=== PATIENT | female | born 1960 | race Caucasian/White ===

== ENCOUNTER 2021-01-14 19:07 | Emergency (ER) | payer MEDICARE, OTHER ==
[~2021-01-14 19:07] MED LIST: ACCUPRIL20 MG PO; ATORVASTATIN CA80 MG PO; AUGMENTIN 875-1 EACH PO; ECOTRIN81 MG PO; LITHIUM CARBON300 M3 PO; PLAVIX 75 MG TA75 MG PO; REMERON30 MG PO; SYNTHROID125 MCG PO; TOPROL XL25 MG PO; TRICOR145 MG PO; XANAX1 MG PO; ZITHROMAX250 MG PO; ZOLOFT100 MG PO
[2021-01-14 19:53] LABS: HEMOGLOBIN 13.5 gm/dl (12.3-15.3); RED BLOOD COUNT 4.6 M/UL (4.00-5.10); WHITE BLOOD COUNT 7.4 K/UL (4.5-11.0)
[2021-01-14 19:59] LABS: BUN/CREATININE RATIO 33 (0-10)
[2021-01-14] MEDS ORDERED: ZOFRAN4 MG PO (22:12)
== END 2021-01-14 22:21 | disposition home or self-care (01) ==
LOC: ER1 19:07
PROVIDERS: Preventive Medicine Occupational Medicine
DX: E86.0 Dehydration (principal); I25.10 Atherosclerotic heart disease of native coronary artery without angina pectoris; I25.2 Old myocardial infarction; Z20.822 Contact with and (suspected) exposure to COVID-19; F17.210 Nicotine dependence, cigarettes, uncomplicated
CPT/HCPCS: 0240U; 71045; 80053; 83605; 83690; 85025; 85652; 86140; 93005; 94664; 94760; 96374; 96375; 99285; C9113; J2405

== ENCOUNTER 2021-01-28 18:49 | Inpatient (IN) | payer MEDICARE, OTHER ==
[~2021-01-28] VITALS: Ht 160 cm; Wt 78.9 kg
[~2021-01-28 18:49] MED LIST changes: +ZOFRAN4 MG PO
[2021-01-28 19:44] LABS: HEMOGLOBIN 13.6 gm/dl (12.3-15.3); RED BLOOD COUNT 4.68 M/UL (4.00-5.10); WHITE BLOOD COUNT 7.1 K/UL (4.5-11.0)
[2021-01-29 06:33] LABS: BUN/CREATININE RATIO 36 (0-10)
--- NOTE | 2021-01-29 10:21 | NUR ---
PT PHARMACY CLOSED UNTIL SUNDAY AT 9AM. PT DOES NOT KNOW HOME MEDICINES. NURSING WILL REACH OUT TO PT SISTER TO ATTEMPT TO OBTAIN A LIST. WILL MAKE MD AWARE CURRENT LIST IS FROM [facility].
[2021-01-29] MEDS ORDERED: ZYPREXA5 MG PO (10:25)
[2021-01-29] MEDS ORDERED: HYDROCODON-ACE1 EAC2 PO (10:25)
[2021-01-29] MEDS ORDERED: KEPPRA750 MG PO (10:25)
[2021-01-29] MEDS ORDERED: SINGULAIR10 MG PO (10:26)
[2021-01-29] MEDS ORDERED: PRAVACHOL40 MG PO (10:26)
[2021-01-29] MEDS ORDERED: LASIX20 MG PO (10:26)
[2021-01-29] MEDS ORDERED: PREDNISONE 10 M10 MG PO (10:27)
[2021-01-29] MEDS ORDERED: DRISDOL1250 MCG PO (10:28)
[2021-01-29] MEDS ORDERED: ZOLOFT100 MG PO (10:28)
[2021-01-29] MEDS ORDERED: XANAX2 MG PO ×2 (10:29→10:30)
[2021-01-29] MEDS ORDERED: PLAVIX 75 MG TA75 MG PO (10:30)
[2021-01-29] MEDS ORDERED: TRICOR 145 MG145 MG PO (10:31)
[2021-01-29] MEDS ORDERED: SYNTHROID125 MCG PO (10:31)
[2021-01-29] MEDS ORDERED: ESTRADIOL1 MG PO (10:31)
[2021-01-29] MEDS ORDERED: REMERON30 MG PO (10:32)
[2021-01-29] MEDS ORDERED: LOPRESSOR50 MG PO (10:32)
[2021-01-29] MEDS ORDERED: TRAZODONE HCL100 MG PO (10:33)
[2021-01-30 03:10] LABS: HEMOGLOBIN 12.9 gm/dl (12.3-15.3); RED BLOOD COUNT 4.47 M/UL (4.00-5.10); WHITE BLOOD COUNT 6.6 K/UL (4.5-11.0)
[2021-01-30 03:20] LABS: BUN/CREATININE RATIO 43 (0-10)
[2021-01-30 04:45] LABS: BORDETELLA PARAPERTUSSIS Not Detected (Not Detectd); BORDETELLA PERTUSSIS Not Detected (Not Detectd); CHLAMYDIA PNEUMONIAE Not Detected (Not Detectd); CORONAVIRUS HKU1 Not Detected (Not Detectd); CORONAVIRUS NL63 Not Detected (Not Detectd); CORONAVIRUS OC43 Not Detected (Not Detectd); CORONOAVIRUS 229E Not Detected (Not Detectd); HUMAN METAPNEUMOVIRUS Not Detected (Not Detectd); HUMAN RHINOVIRUS/ENTEROVIRUS Not Detected (Not Detectd); INFLUENZA A Not Detected (Not Detectd); INFLUENZA B Not Detected (Not Detectd); MYCOPLASMA PNEUMONIAE Not Detected (Not Detectd); PARAINFLUENZA VIRUS 1 Not Detected (Not Detectd); PARAINFLUENZA VIRUS 2 Not Detected (Not Detectd); PARAINFLUENZA VIRUS 3 Not Detected (Not Detectd); PARAINFLUENZA VIRUS 4 Not Detected (Not Detectd); RESPIRATORY SYNCYTIAL VIRUS Not Detected (Not Detectd)
[2021-01-30 05:47] LABS: SARS-CoV-2 NOT DETECTED (Not Detectd)
[2021-01-31 05:14] LABS: HEMOGLOBIN 13.1 gm/dl (12.3-15.3); RED BLOOD COUNT 4.54 M/UL (4.00-5.10); WHITE BLOOD COUNT 4.9 K/UL (4.5-11.0)
[2021-01-31 05:30] LABS: BUN/CREATININE RATIO 34 (0-10)
[2021-01-31 08:10] LABS: HBSAG SCREEN Negative (Negative); HEP A AB, IGM Negative (Negative); HEP B CORE AB, IGM Negative (Negative); HEP C VIRUS AB <0.1 (0.0-0.9)
[2021-02-01 05:28] LABS: HEMOGLOBIN 13.3 gm/dl (12.3-15.3); RED BLOOD COUNT 4.57 M/UL (4.00-5.10); WHITE BLOOD COUNT 5.4 K/UL (4.5-11.0)
[2021-02-01 05:55] LABS: BUN/CREATININE RATIO 21 (0-10)
[2021-02-01 14:11] LABS: ORGANISM ID Not indicated. (.); SPECIMEN SOURCE Urine (.); STREPTOCOCCUS PNEUMONIAE AG Negative (Negative)
[2021-02-02] MEDS ORDERED: VIBRAMYCIN 100100 MG GT (11:55)
[2021-02-02] MEDS ORDERED: CEFPODOXIME PR200 MG PO (11:55)
[2021-02-03 05:55] LABS: HEMOGLOBIN 13.6 gm/dl (12.3-15.3); RED BLOOD COUNT 4.71 M/UL (4.00-5.10)
[2021-02-03 06:00] LABS: WHITE BLOOD COUNT 7.5 K/UL (4.5-11.0)
[2021-02-03 06:26] LABS: BUN/CREATININE RATIO 22 (0-10)
[2021-02-04 05:31] LABS: HEMOGLOBIN 14.1 gm/dl (12.3-15.3); RED BLOOD COUNT 4.82 M/UL (4.00-5.10); WHITE BLOOD COUNT 7.8 K/UL (4.5-11.0)
[2021-02-04 05:51] LABS: BUN/CREATININE RATIO 22 (0-10)
[2021-02-04] MEDS ORDERED: PHOS-NAK PACKET1 EA PO (11:10)
[2021-02-04] MEDS ORDERED: OXYCODONE HCL5 MG PO (11:39)
--- NOTE | 2021-02-04 17:03 | NUR ---
PATIENT TRANSFERRED TO [facility] VIA EMS. REPORT TO KATHLEEN MENA AT 1620 THIS EVENING. WAFFLE MATTRESS SENT WITH PATIENT. PRN XANEX ADMINISTERED UPON REQUEST BEFORE TRANSFER R/T ANXIETY. NO S/SX OF DISTRESS NOTED.
== END 2021-02-04 17:06 | DRG 871 ==
LOC: ER1 18:49 → ZEROF 01-29 02:05 → CCU 01-29 02:05 → MED SURG 4 01-29 02:05 → CCU 01-29 06:18 → MED SURG 4 01-31 14:34
PROVIDERS: Emergency Medicine; Internal Medicine; Internal Medicine Pulmonary Disease; ADMIT Internal Medicine
DX: A41.9 Sepsis, unspecified organism (principal); J96.01 Acute respiratory failure with hypoxia; E43 Unspecified severe protein-calorie malnutrition; G93.41 Metabolic encephalopathy; I21.A1 Myocardial infarction type 2; J15.8 Pneumonia due to other specified bacteria; N17.9 Acute kidney failure, unspecified; C78.01 Secondary malignant neoplasm of right lung; C79.70 Secondary malignant neoplasm of unspecified adrenal gland; J90 Pleural effusion, not elsewhere classified; C77.2 Secondary and unspecified malignant neoplasm of intra-abdominal lymph nodes; D84.9 Immunodeficiency, unspecified; Z20.822 Contact with and (suspected) exposure to COVID-19; Z66 Do not resuscitate; E83.39 Other disorders of phosphorus metabolism; C50.919 Malignant neoplasm of unspecified site of unspecified female breast; N18.30 Chronic kidney disease, stage 3 unspecified; F41.1 Generalized anxiety disorder; E66.9 Obesity, unspecified; G47.00 Insomnia, unspecified; I13.10 Hypertensive heart and chronic kidney disease without heart failure, with stage 1 through stage 4 chronic kidney disease, or unspecified chronic kidney disease; F32.9 Major depressive disorder, single episode, unspecified; I25.10 Atherosclerotic heart disease of native coronary artery without angina pectoris; Z95.5 Presence of coronary angioplasty implant and graft; Z87.891 Personal history of nicotine dependence; Z79.82 Long term (current) use of aspirin; Z68.30 Body mass index [BMI] 30.0-30.9, adult; Z90.710 Acquired absence of both cervix and uterus
CPT/HCPCS: 0240U; 36415; 36600; 51702; 70450; 70553; 71045; 71250; 74018; 76705; 80048; 80053; 80074; 80202; 80307; 81001; 82140; 82550; 82553; 82803; 82962; 83605; 83615; 83690; 83735; 83874; 83880; 84100; 84484; 85025; 85027; 85379; 85610; 86140; 86738; 87040; 87070; 87081; 87086; 87205; 87278; 87633; 87899; 93005; 94760; 96365; 96368; 96375; 97110-GP-CQ; 97116-GP-CQ; 97161; 97530-GP-CQ; 99285; A9577; C9113; G0480; J0692; J1200; J1642; J1644; J1940; J2543; J2930; J3370; J7030; J7050; J7070; Q9967; U0002

== ENCOUNTER → 2021-05-16 | Outpatient (CLI) | payer MEDICARE, OTHER ==
[~2021-05-16] MED LIST changes: +CEFPODOXIME PR200 MG PO; +DRISDOL1250 MCG PO; +ESTRADIOL0.5 MG PO; +HYDROCODON-ACE1 EAC2 PO; +KEPPRA750 MG PO; +LASIX20 MG PO; +LOPRESSOR50 MG PO; +OXYCODONE HCL5 MG PO; +PHOS-NAK PACKET1 EA PO; +POTASSIUM CHLO20 ME2 PO; +PRAVASTATIN SOD40 MG PO; +PREDNISONE 10 M10 MG PO; +SINGULAIR10 MG PO; +TRAZODONE HCL100 MG PO; +TRICOR 145 MG145 MG PO; +VIBRAMYCIN 100100 MG GT; +XANAX2 MG PO; +ZYPREXA5 MG PO
== END ==
LOC: CT 13:00
DX: C34.31 Malignant neoplasm of lower lobe, right bronchus or lung (principal); C79.31 Secondary malignant neoplasm of brain; C77.2 Secondary and unspecified malignant neoplasm of intra-abdominal lymph nodes
CPT/HCPCS: 71250

== ENCOUNTER 2021-07-14 11:18 | Inpatient (IN) | payer MEDICARE, OTHER ==
[~2021-07-14] VITALS: Ht 160 cm; Wt 63.5 kg
[~2021-07-14 11:18] MED LIST changes: -POTASSIUM CHLO20 ME2 PO
[2021-07-14 12:20] LABS: HEMOGLOBIN 11.2 gm/dl (12.3-15.3); RED BLOOD COUNT 3.67 M/UL (4.00-5.10); WHITE BLOOD COUNT 4.5 K/UL (4.5-11.0)
[2021-07-14 12:56] LABS: BUN/CREATININE RATIO 29 (0-10)
[2021-07-14] MEDS ORDERED: HYDROCODON-ACE1 EAC2 PO (16:53)
[2021-07-14] MEDS ORDERED: POTASSIUM CHLO20 ME2 PO (16:59)
[2021-07-15 02:49] LABS: HEMOGLOBIN 9.4 gm/dl (12.3-15.3); WHITE BLOOD COUNT 3.4 K/UL (4.5-11.0)
[2021-07-15 03:04] LABS: RED BLOOD COUNT 3.1 M/UL (4.00-5.10)
[2021-07-15 03:53] LABS: BUN/CREATININE RATIO 24 (0-10)
[2021-07-15] MEDS ORDERED: TRAZODONE HCL100 MG PO (21:28)
[2021-07-17 07:52] LABS: HEMOGLOBIN 11.2 gm/dl (12.3-15.3)
[2021-07-17 07:54] LABS: RED BLOOD COUNT 3.69 M/UL (4.00-5.10); WHITE BLOOD COUNT 5.6 K/UL (4.5-11.0)
[2021-07-17 08:21] LABS: BUN/CREATININE RATIO 27 (0-10)
[2021-07-18 06:37] LABS: HEMOGLOBIN 11.6 gm/dl (12.3-15.3); RED BLOOD COUNT 3.74 M/UL (4.00-5.10); WHITE BLOOD COUNT 6.4 K/UL (4.5-11.0)
[2021-07-18 07:08] LABS: BUN/CREATININE RATIO 29 (0-10)
[2021-07-20 07:02] LABS: HEMOGLOBIN 11.9 gm/dl (12.3-15.3); RED BLOOD COUNT 3.92 M/UL (4.00-5.10); WHITE BLOOD COUNT 6.3 K/UL (4.5-11.0)
[2021-07-20 08:25] LABS: BUN/CREATININE RATIO 34 (0-10)
[2021-07-21 03:49] LABS: HEMOGLOBIN 11.8 gm/dl (12.3-15.3); RED BLOOD COUNT 3.94 M/UL (4.00-5.10); WHITE BLOOD COUNT 6.2 K/UL (4.5-11.0)
[2021-07-21 04:04] LABS: BUN/CREATININE RATIO 36 (0-10)
[2021-07-22 06:27] LABS: RED BLOOD COUNT 3.94 M/UL (4.00-5.10); WHITE BLOOD COUNT 6.1 K/UL (4.5-11.0)
[2021-07-22 06:55] LABS: BUN/CREATININE RATIO 41 (0-10)
[2021-07-23 06:56] LABS: HEMOGLOBIN 11.9 gm/dl (12.3-15.3); RED BLOOD COUNT 3.87 M/UL (4.00-5.10); WHITE BLOOD COUNT 5.4 K/UL (4.5-11.0)
[2021-07-23 07:20] LABS: BUN/CREATININE RATIO 43 (0-10)
== END 2021-07-23 14:52 | disposition home health service (06) | DRG 177 ==
LOC: ER1 11:18 → MED SURG 4 15:00 → CDU 15:00 → MED SURG 4 16:42
PROVIDERS: Internal Medicine; Nurse Practitioner; ADMIT Internal Medicine Infectious Disease
PROC: XW033E5 Introduction of Remdesivir Anti-infective into Peripheral Vein, Percutaneous Approach, New Technology Group 5 (ICD-10-PCS; principal; 2021-07-14)
PROC: 3E0333Z Introduction of Anti-inflammatory into Peripheral Vein, Percutaneous Approach (ICD-10-PCS; 2021-07-14)
PROC: 8E0ZXY6 Isolation (ICD-10-PCS; 2021-07-14)
DX: U07.1 COVID-19 (principal); J96.21 Acute and chronic respiratory failure with hypoxia; G93.41 Metabolic encephalopathy; C34.90 Malignant neoplasm of unspecified part of unspecified bronchus or lung; A08.39 Other viral enteritis; D84.9 Immunodeficiency, unspecified; E86.0 Dehydration; E03.9 Hypothyroidism, unspecified; I25.10 Atherosclerotic heart disease of native coronary artery without angina pectoris; F41.9 Anxiety disorder, unspecified; E78.5 Hyperlipidemia, unspecified; Z98.890 Other specified postprocedural states; Z95.5 Presence of coronary angioplasty implant and graft; Z87.891 Personal history of nicotine dependence; Z95.1 Presence of aortocoronary bypass graft; Z79.82 Long term (current) use of aspirin; Z79.02 Long term (current) use of antithrombotics/antiplatelets; Z88.2 Allergy status to sulfonamides; Z88.1 Allergy status to other antibiotic agents; Z88.5 Allergy status to narcotic agent; Z91.041 Radiographic dye allergy status
CPT/HCPCS: 36415; 70450; 71045; 80048; 80053; 82550; 82553; 82728; 83615; 83735; 83874; 83880; 84484; 85025; 85027; 85379; 86140; 93005; 94640; 94760; 96374; 96375; 97110-GP-CQ; 97161; 97530; 99285; J1100; J1650; J3475; J7030; J7120; U0002

== ENCOUNTER 2021-08-05 11:34 | Emergency (ER) | payer MEDICARE, OTHER ==
[~2021-08-05 11:34] MED LIST changes: +POTASSIUM CHLO20 ME2 PO
== END 2021-08-05 15:21 | disposition home or self-care (01) ==
LOC: ER1 11:34
DX: S30.0XXA Contusion of lower back and pelvis, initial encounter (principal); S20.229A Contusion of unspecified back wall of thorax, initial encounter; U07.1 COVID-19; J12.82 Pneumonia due to coronavirus disease 2019; R09.02 Hypoxemia; C34.90 Malignant neoplasm of unspecified part of unspecified bronchus or lung; M51.37 Other intervertebral disc degeneration, lumbosacral region; Z88.5 Allergy status to narcotic agent; Z91.041 Radiographic dye allergy status; Z88.8 Allergy status to other drugs, medicaments and biological substances; F17.210 Nicotine dependence, cigarettes, uncomplicated; W19.XXXA Unspecified fall, initial encounter
CPT/HCPCS: 72128; 72131; 94664; 94760; 99284

== ENCOUNTER → 2021-08-23 | Outpatient (CLI) | payer MEDICARE, OTHER | LOC: KOH-I 12:33 | DX: C34.31 Malignant neoplasm of lower lobe, right bronchus or lung (principal); C79.31 Secondary malignant neoplasm of brain; C77.2 Secondary and unspecified malignant neoplasm of intra-abdominal lymph nodes; E03.9 Hypothyroidism, unspecified; R91.8 Other nonspecific abnormal finding of lung field | CPT/HCPCS: 71250; 74176 ==

== ENCOUNTER 2021-11-06 09:26 | Inpatient (IN) | payer MEDICARE, OTHER ==
[~2021-11-06] VITALS: Ht 160 cm; Wt 63.5 kg
[2021-11-06 10:01] LABS: RED BLOOD COUNT 4.43 M/UL (4.00-5.10); WHITE BLOOD COUNT 6.3 K/UL (4.5-11.0)
[2021-11-06 10:30] LABS: BUN/CREATININE RATIO 20 (0-10)
[2021-11-06] MEDS ORDERED: MEGESTROL400 MG/11 PO (14:22)
[2021-11-06] MEDS ORDERED: ZOLPIDEM TARTRA10 MG PO (14:24)
[2021-11-06] MEDS ORDERED: OLANZAPINE10 MG PO (14:25)
[2021-11-07 05:49] LABS: HEMOGLOBIN 11.6 gm/dl (12.3-15.3); WHITE BLOOD COUNT 4.9 K/UL (4.5-11.0)
[2021-11-07 05:52] LABS: RED BLOOD COUNT 3.94 M/UL (4.00-5.10)
[2021-11-07 06:28] LABS: BUN/CREATININE RATIO 10 (0-10)
[2021-11-08 06:30] LABS: HEMOGLOBIN 11.9 gm/dl (12.3-15.3); WHITE BLOOD COUNT 3.8 K/UL (4.5-11.0)
[2021-11-08 06:57] LABS: BUN/CREATININE RATIO 13 (0-10)
[2021-11-09 04:57] LABS: HEMOGLOBIN 11.2 gm/dl (12.3-15.3); RED BLOOD COUNT 3.72 M/UL (4.00-5.10)
[2021-11-09 05:25] LABS: BUN/CREATININE RATIO 16 (0-10)
[2021-11-09] MEDS ORDERED: IPRAT-ALBUT 0.5-3 ML NEB (12:22)
[2021-11-09] MEDS ORDERED: AUGMENTIN 875-1 EACH PO (12:22)
[2021-11-09] MEDS ORDERED: AEROECLIPSE II1 EACH INH (12:34)
== END 2021-11-09 15:04 | disposition home health service (06) | DRG 180 ==
LOC: ER1 09:26 → MED SURG 4 13:42 → CDU 13:42 → MED SURG 4 13:42
PROVIDERS: Emergency Medicine; Internal Medicine; Physician Assistant Medical; ADMIT Internal Medicine
DX: C34.90 Malignant neoplasm of unspecified part of unspecified bronchus or lung (principal); J18.9 Pneumonia, unspecified organism; E43 Unspecified severe protein-calorie malnutrition; J96.01 Acute respiratory failure with hypoxia; J44.0 Chronic obstructive pulmonary disease with (acute) lower respiratory infection; E83.42 Hypomagnesemia; G47.00 Insomnia, unspecified; Z20.822 Contact with and (suspected) exposure to COVID-19; I25.10 Atherosclerotic heart disease of native coronary artery without angina pectoris; F17.200 Nicotine dependence, unspecified, uncomplicated; I10 Essential (primary) hypertension; F41.9 Anxiety disorder, unspecified; E78.5 Hyperlipidemia, unspecified; E87.6 Hypokalemia; E03.9 Hypothyroidism, unspecified; G89.29 Other chronic pain; Z51.5 Encounter for palliative care; Z98.890 Other specified postprocedural states; Z95.5 Presence of coronary angioplasty implant and graft; Z88.2 Allergy status to sulfonamides; Z91.041 Radiographic dye allergy status; Z88.8 Allergy status to other drugs, medicaments and biological substances; Z92.21 Personal history of antineoplastic chemotherapy; Z92.3 Personal history of irradiation; Z79.899 Other long term (current) drug therapy; Z79.82 Long term (current) use of aspirin; Z80.0 Family history of malignant neoplasm of digestive organs; Z83.6 Family history of other diseases of the respiratory system; Z82.49 Family history of ischemic heart disease and other diseases of the circulatory system
CPT/HCPCS: 0240U; 36415; 70553; 71045; 80048; 80053; 83605; 83735; 83880; 84100; 84132; 85025; 85027; 86140; 87040; 93005; 94760; 96372; 96374; 96375; 96376; 97162; 99285; A9577; G0378; J0696; J1170; J1335; J1650; J2270; J2405; J3475; J3480